=== PATIENT | female | born 1935 | race Caucasian/White ===

== ENCOUNTER 2019-11-16 10:33 | Emergency (ER) | payer BC, OTHER ==
[~2019-11-16] VITALS: Ht 152.4 cm; Wt 47.2 kg
[2019-11-16 11:02] LABS: Basophils # (auto) 0.1 uL; Eosinophils # (auto) 0.2 uL; Mean Corpuscular Volume 100.6 fL (80.0-100.0); Monocytes # (auto) 0.9 uL; Monocytes % (auto) 11.7 % (0.0-12.0); White Blood Cell 7.7 10^3/uL (4.4-10.8)
[2019-11-16 11:04] LABS: Basophils % (auto) 1.2 % (0.0-2.0); Hematocrit 39.8 % (36.0-46.0); Hemoglobin 13.8 g/dL (12.2-16.2); Lymphocytes # (auto) 2.5 uL; Lymphocytes % (auto) 31.9 % (10.0-50.0); Mean Corpuscular Hemoglobin 34.8 pg (28.0-32.0); Mean Corpuscular Hgb Conc. 34.6 g/dL (32.0-36.0); Neutrophils % (auto) 52.2 % (37.0-80.0); Nucleated Red Blood Cells % 0.1 %; Platelet Count (auto) 221 10^3/uL (140-450); Red Blood Cells 3.95 10^6/uL (4.0-5.20); Red Cell Distribution Width 13.1 % (11.8-14.3)
[2019-11-16 11:24] LABS: Anion Gap 6 (5-15); Blood Urea Nitrogen 25 mg/dL (7-18); Calcium 9.7 mg/dL (8.5-10.1); Carbon Dioxide 30 mmol/L (21-32); Chloride 101 mmol/L (98-107); Glucose 70 mg/dL (74-106); Potassium 4.1 mmol/L (3.5-5.1); Sodium 137 mmol/L (136-145)
[2019-11-16 11:29] LABS: Alanine Aminotransferase 40 U/L (13-56); Alkaline Phosphatase 90 U/L (45-117); Aspartate Aminotransferase 36 U/L (15-37); BUN/Creatinine Ratio 21.9; Bilirubin, Total 0.8 mg/dL (0.2-1.0); GFR African American 58 mL/min; GFR Non-African American 48 mL/min; Total Protein 7.5 g/dL (6.4-8.2)
[2019-11-16 12:37] VITALS: BP 154/46
== END 2019-11-16 12:56 | disposition home or self-care (01) ==
LOC: ER 10:33
DX: J20.9 Acute bronchitis, unspecified (principal); E78.5 Hyperlipidemia, unspecified; I10 Essential (primary) hypertension; Z90.710 Acquired absence of both cervix and uterus; Z87.891 Personal history of nicotine dependence; Z98.61 Coronary angioplasty status
CPT/HCPCS: 36415; 71046; 80053; 83735; 83880; 84484; 85025; 93005